=== PATIENT | male | born 1970 ===

== ENCOUNTER 2021-11-08 07:00 | Day surgery (SDC) | payer OTHER ==
[~2021-11-08 07:00] MED LIST: LIPITOR20 MG PO; LOSARTAN-HCTZ1 EAC1 PO
[2021-11-08] MEDS ORDERED: POLY119PG PO (14:21)
[2021-11-08] MEDS ORDERED: PERCOCET 5-3251 EACH PO (14:21)
[2021-11-08] MEDS ORDERED: NEURONTIN600 M1 PO (14:21)
== END 2021-11-08 17:05 | disposition home or self-care (01) ==
LOC: CIR.AMB 07:00
PROVIDERS: ATTEND Surgery
DX: K43.2 Incisional hernia without obstruction or gangrene (principal); J45.909 Unspecified asthma, uncomplicated; Z86.16 Personal history of COVID-19; I10 Essential (primary) hypertension; G47.33 Obstructive sleep apnea (adult) (pediatric)